=== PATIENT | female | born 1970 | race African-American/Black ===

== ENCOUNTER 2017-10-06 01:42 | Emergency (ER) | payer OTHER ==
[~2017-10-06] VITALS: Ht 157.5 cm; Wt 77.1 kg
--- NOTE | ~2017-10-06 | EKG ---
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
[~2017-10-06 01:42] MED LIST: ACETAMINOPHEN-1 EAC1 PO; CITRATE OF MAG296 ML PO; CLARITIN10 MG PO; CLARITIN5 MG; CLEOCIN HCL150 MG PO; COLACE100 MG PO; COUMADIN 3 MG TA3 M1 PO; FLEXERIL PO; HYDROCODONE-AP1 EAC6 PO; IBUPROFEN 600600 M1 PO; IBUPROFEN 800800 MG PO; LASIX 20 MG TAB20 MG PO; MACROBID 100 M100 M1 PO; MEDROLDOSEPACK PO; NOHOMEMEDICATIONS; NORCO 5-325 TA1 EACH PO; PENICILLIN V P500 MG PO; PENICILLIN VK500 MG PO; POTASSIUM20 PO; PREDNISONE 20 M20 MG PO; SLOW-MAG64 MG PO; TOBRAMYCIN SULFA5 ML IO; TYLENOL W/CODEI1 TA2 PO; ULTRAM 50MG TAB50 MG PO; ZOFRAN ODT4 MG PO
[2017-10-06] MEDS ORDERED: BENADRYL25 MG (02:01)
[2017-10-06 03:25] LABS: ABSOLUTE NEUTROPHILS 6.4 thou/uL (1.4-8.2); BASOPHILS 1.2 % (0.0-2.0); HEMATOCRIT 37.6 % (37.0-47.0); HEMOGLOBIN 12.3 gm/dL (12.0-15.0); LYMPHOCYTES 27.7 % (24.0-44.0); MCH 28.2 pg (26.0-34.0); MCHC 32.8 g/dL (28.0-37.0); MCV 86.2 fL (80.0-100.0); MONOCYTES 4.7 % (1.0-8.0); PLATELET COUNT 277 thou/uL (150-400); POLYS 65.4 % (36.0-66.0); RBC 4.37 mil/uL (4.20-5.00); RDW 14.6 % (10.5-14.5); WBC 9.8 thou/uL (4.0-11.0)
[2017-10-06 03:28] LABS: ANION GAP 9 mmol/L (7-16); BUN 10 mg/dL (7-18); CALCIUM 9.1 mg/dL (8.5-10.1); CHLORIDE 106 mmol/L (98-107); CO2 27 mmol/L (21-32); GLUCOSE 101 mg/dL (74-106); POTASSIUM 3.5 mmol/L (3.5-5.1); SODIUM 142 mmol/L (136-145)
[2017-10-06 03:37] LABS: TROPONIN-I < 0.04 ng/mL (<0.06)
== END 2017-10-06 05:33 | disposition home or self-care (01) ==
LOC: ER 01:42
PROVIDERS: Emergency Medicine
DX: R07.89 Other chest pain (principal); F17.210 Nicotine dependence, cigarettes, uncomplicated; Z88.5 Allergy status to narcotic agent; Z88.8 Allergy status to other drugs, medicaments and biological substances

== ENCOUNTER 2017-10-24 11:46 | Emergency (ER) | payer OTHER ==
[~2017-10-24] VITALS: Ht 162.6 cm; Wt 78.0 kg
[~2017-10-24 11:46] MED LIST changes: +BENADRYL25 MG
[2017-10-24] MEDS ORDERED: KEFLEX500 M1 PO (13:01)
[2017-10-24] MEDS ORDERED: MOBIC15 MG PO (13:01)
[2017-10-24] MEDS ORDERED: CIPRO500 MG PO (13:06)
== END 2017-10-24 13:20 | disposition home or self-care (01) ==
LOC: ER 11:46
DX: L03.031 Cellulitis of right toe (principal); F17.210 Nicotine dependence, cigarettes, uncomplicated; Z88.6 Allergy status to analgesic agent

== ENCOUNTER 2017-11-05 12:05 | Emergency (ER) | payer OTHER ==
[~2017-11-05] VITALS: Ht 162.6 cm; Wt 82.6 kg
[~2017-11-05 12:05] MED LIST changes: +CIPRO500 MG PO; +KEFLEX500 M1 PO; +MOBIC15 MG PO
== END 2017-11-05 13:01 | disposition home or self-care (01) ==
LOC: ER 12:05
DX: F41.1 Generalized anxiety disorder (principal); R44.0 Auditory hallucinations; Z86.718 Personal history of other venous thrombosis and embolism; Z88.6 Allergy status to analgesic agent; F17.210 Nicotine dependence, cigarettes, uncomplicated

== ENCOUNTER 2017-11-25 12:41 | Emergency (ER) | payer OTHER ==
[~2017-11-25] VITALS: Ht 162.6 cm; Wt 81.7 kg
== END 2017-11-25 14:27 | disposition home or self-care (01) ==
LOC: ER 12:41
DX: F41.9 Anxiety disorder, unspecified (principal); F20.9 Schizophrenia, unspecified; F17.210 Nicotine dependence, cigarettes, uncomplicated; Z88.6 Allergy status to analgesic agent

== ENCOUNTER 2017-12-01 07:06 | Emergency (ER) | payer OTHER ==
[~2017-12-01] VITALS: Ht 162.6 cm; Wt 81.7 kg
[2017-12-01] MEDS ORDERED: HYDROXYZINE HCL25 M1 PO (07:23)
[2017-12-01] MEDS ORDERED: COLACE100 MG PO (07:59)
[2017-12-01] MEDS ORDERED: NORCO 5-325 TA1 EACH PO (07:59)
[2017-12-01] MEDS ORDERED: CITRATE OF MAG296 ML PO (07:59)
[2017-12-02] MEDS ORDERED: NAPROSYN500 MG PO (00:11)
== END 2017-12-01 08:48 | disposition home or self-care (01) ==
LOC: ER 07:06
DX: M25.552 Pain in left hip (principal); K59.00 Constipation, unspecified; F41.9 Anxiety disorder, unspecified; F17.210 Nicotine dependence, cigarettes, uncomplicated; Z88.6 Allergy status to analgesic agent

== ENCOUNTER 2017-12-01 23:11 | Emergency (ER) | payer OTHER ==
[~2017-12-01] VITALS: Ht 162.6 cm; Wt 81.7 kg
[~2017-12-01 23:11] MED LIST changes: +HYDROXYZINE HCL25 M1 PO
[2017-12-02] MEDS ORDERED: NAPROSYN500 MG PO (00:11)
== END 2017-12-02 00:09 | disposition home or self-care (01) ==
LOC: ER 23:11
DX: M70.61 Trochanteric bursitis, right hip (principal); F41.9 Anxiety disorder, unspecified; Z87.891 Personal history of nicotine dependence; Z88.6 Allergy status to analgesic agent; Z86.718 Personal history of other venous thrombosis and embolism

== ENCOUNTER 2018-06-21 17:08 | Emergency (ER) | payer OTHER ==
[~2018-06-21] VITALS: Ht 162.6 cm; Wt 106.6 kg
--- NOTE | ~2018-06-21 | EKG ---
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 : 1970 Requested By: Reyes Malcolm Order Number: [id number] MD: Noah Blank Measurements Intervals [place] Rate: 92 P: -4 [place]: 127 QRS: 10 QRSD: 82 T: -23 QT: 413 QTc: 511 Interpretive Statements Sinus rhythm Nonspecific T wave abnormality Prolonged QT interval Baseline wander in lead(s) V2 Compared to ECG 10/06/2017 01:57:33 T-wave abnormality now present Prolonged QT interval now present Electronically Signed On 06-22-2018 7:23:36 CDT by Noah Blank [email or web address] <ELECTRONICALLY SIGNED> By: Noah Blank MD, [facility] 06/22/18 0723 1815 1815 Noah Blank MD, [facility] /EPI
[~2018-06-21 17:08] MED LIST changes: +NAPROSYN500 MG PO
[2018-06-21 18:35] LABS: HEMATOCRIT 28.7 % (37.0-47.0); HEMOGLOBIN 9.6 gm/dL (12.0-15.0); MCH 27.7 pg (26.0-34.0); MCHC 33.4 g/dL (28.0-37.0); MCV 82.8 fL (80.0-100.0); RBC 3.47 mil/uL (4.20-5.00); RDW 14.3 % (10.5-14.5); WBC 10.4 thou/uL (4.0-11.0)
[2018-06-21 18:45] LABS: ANION GAP 7 mmol/L (7-16); BUN 6 mg/dL (7-18); CHLORIDE 102 mmol/L (98-107); CO2 28 mmol/L (21-32); CREATININE 0.9 mg/dL (0.6-1.0); GLUCOSE 113 mg/dL (74-106); POTASSIUM 3.1 mmol/L (3.5-5.1); SODIUM 137 mmol/L (136-145)
[2018-06-21 18:54] LABS: TROPONIN-I <0.06 ng/mL (<0.06)
[2018-06-21] MEDS ORDERED: DOXYCYCLINE 10100 MG PO (21:05)
[2018-06-21] MEDS ORDERED: NORCO 5-325 TA1 EACH PO (21:05)
[2018-06-21] MEDS ORDERED: IRON325 PO (21:05)
[2018-06-21] MEDS ORDERED: LASIX 20 MG TAB20 MG PO (21:09)
[2018-06-21 21:16] VITALS: BP 132/80
== END 2018-06-21 21:17 | disposition home or self-care (01) ==
LOC: ER 17:08
PROVIDERS: Physician Assistant
DX: J18.9 Pneumonia, unspecified organism (principal); E87.6 Hypokalemia; R60.0 Localized edema; D64.9 Anemia, unspecified; Z86.718 Personal history of other venous thrombosis and embolism; Z76.0 Encounter for issue of repeat prescription; F41.9 Anxiety disorder, unspecified; Z87.891 Personal history of nicotine dependence; Z98.890 Other specified postprocedural states

== ENCOUNTER 2018-11-25 06:35 | Emergency (ER) | payer OTHER ==
[~2018-11-25] VITALS: Ht 162.6 cm; Wt 96.6 kg
[~2018-11-25 06:35] MED LIST changes: +DOXYCYCLINE 10100 MG PO; +IRON325 PO
[2018-11-25 07:05] VITALS: BP 151/85
[2018-11-25] MEDS ORDERED: NAPROSYN500 MG PO (08:24)
[2018-11-25] MEDS ORDERED: TRAMADOL 50 MG50 MG PO (08:24)
[2018-11-25] MEDS ORDERED: BACTRIM DS TAB1 EACH PO (08:24)
== END 2018-11-25 08:30 | disposition home or self-care (01) ==
LOC: ER 06:35
DX: L03.032 Cellulitis of left toe (principal); B35.3 Tinea pedis; F41.9 Anxiety disorder, unspecified; Z98.890 Other specified postprocedural states; Z87.891 Personal history of nicotine dependence

== ENCOUNTER 2019-08-26 19:24 | Emergency (ER) | payer OTHER ==
[~2019-08-26] VITALS: Ht 157.5 cm; Wt 117.9 kg
[~2019-08-26 19:24] MED LIST changes: +BACTRIM DS TAB1 EACH PO; +TRAMADOL 50 MG50 MG PO
[2019-08-26 19:45] LABS: URINE BILIRUBIN NEGATIVE (Negative); URINE BLOOD TRACE (Negative); URINE CLARITY CLEAR; URINE COLOR YELLOW; URINE GLUCOSE-RANDOM* NEGATIVE (Negative); URINE KETONES NEGATIVE (Negative); URINE LEUKOCYTES-REFLEX NEGATIVE (Negative); URINE NITRITE-REFLEX NEGATIVE (Negative); URINE PROTEIN (DIPSTICK) NEGATIVE (Negative); URINE SPECIFIC GRAVITY <= 1.005 (1.005-1.035); URINE UROBILINOGEN 0.2 E.U./dl (0.2-1.0)
[2019-08-26 21:15] LABS: ANION GAP 13 mmol/L (7-16); BUN 4 mg/dL (7-18); CALCIUM 9.4 mg/dL (8.5-10.1); CHLORIDE 103 mmol/L (98-107); CO2 23 mmol/L (21-32); CREATININE 0.7 mg/dL (0.6-1.0); GLUCOSE 97 mg/dL (74-106); SODIUM 139 mmol/L (136-145)
[2019-08-26 21:24] LABS: MAGNESIUM 1.9 mg/dL (1.8-2.4); TROPONIN-I <0.06 ng/mL (<0.06)
[2019-08-26 21:48] LABS: ABSOLUTE NEUTROPHILS 7.2 thou/uL (1.4-8.2); BASOPHILS 0.8 % (0.0-2.0); EOSINOPHILS 1.7 % (0.0-3.0); HEMATOCRIT 35.3 % (37.0-47.0); MCH 26.4 pg (26.0-34.0); MCHC 31.3 g/dL (28.0-37.0); MCV 84.5 fL (80.0-100.0); MONOCYTES 3.6 % (1.0-8.0); PLATELET COUNT 282 thou/uL (150-400); POLYS 64.9 % (36.0-66.0); RBC 4.18 mil/uL (4.20-5.00); RDW 15.4 % (10.5-14.5); WBC 11.1 thou/uL (4.0-11.0)
[2019-08-26 22:20] VITALS: BP 182/104
--- NOTE | 2019-08-27 09:43 | EKG ---
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: candice mclaughlin rn : 1970 Requested By: Sae Jj Order Number: [id number] MD: Noah Blank Measurements Intervals [place] Rate: 92 P: 19 NE: 119 QRS: 14 QRSD: 75 T: 13 QT: 356 QTc: 441 Interpretive Statements Sinus rhythm Borderline short NE interval Compared to ECG 06/21/2018 18:15:42 T-wave abnormality no longer present Prolonged QT interval no longer present Electronically Signed On 08-27-2019 9:43:23 WASHROOM ATTENDANT by Noah Blank [email or web address] <ELECTRONICALLY SIGNED> By: Noah Blank MD, [facility] 08/27/19 0943 42 42 Noah Blank MD, FAC /EPI
== END 2019-08-26 22:20 | disposition home or self-care (01) ==
LOC: ER 19:24
PROVIDERS: Emergency Medicine; Nurse Practitioner
DX: M79.605 Pain in left leg (principal); R53.81 Other malaise; R53.83 Other fatigue; Z87.891 Personal history of nicotine dependence; Z98.890 Other specified postprocedural states; Z98.51 Tubal ligation status; Z86.718 Personal history of other venous thrombosis and embolism

== ENCOUNTER 2020-04-03 08:19 | Emergency (ER) | payer OTHER ==
[~2020-04-03] VITALS: Ht 162.6 cm; Wt 122.9 kg
[2020-04-03 09:16] LABS: ABSOLUTE NEUTROPHILS 7.2 thou/uL (1.4-8.2); BASOPHILS 1.2 % (0.0-2.0); EOSINOPHILS 2.6 % (0.0-3.0); HEMATOCRIT 34.5 % (37.0-47.0); HEMOGLOBIN 11.1 gm/dL (12.0-15.0); LYMPHOCYTES 28.2 % (24.0-44.0); MCHC 32.2 g/dL (28.0-37.0); MCV 84.1 fL (80.0-100.0); MONOCYTES 3.3 % (1.0-8.0); PLATELET COUNT 271 thou/uL (150-400); POLYS 64.7 % (36.0-66.0); RDW 15.2 % (10.5-14.5); WBC 11.1 thou/uL (4.0-11.0)
[2020-04-03 09:32] LABS: CALCIUM 8.4 mg/dL (8.5-10.1); CREATININE 0.9 mg/dL (0.6-1.0); POTASSIUM 3.2 mmol/L (3.5-5.1)
[2020-04-03] MEDS ORDERED: ERYTHROMYCIN E3.5 G3 OPHTHALMIC (09:50)
[2020-04-03 10:15] VITALS: BP 161/90
== END 2020-04-03 10:18 | disposition home or self-care (01) ==
LOC: ER 08:19
PROVIDERS: Student in an Organized Health Care Education/Training Program
DX: L03.213 Periorbital cellulitis (principal); H10.89 Other conjunctivitis; Z86.73 Personal history of transient ischemic attack (TIA), and cerebral infarction without residual deficits; Z79.899 Other long term (current) drug therapy; Z87.891 Personal history of nicotine dependence